=== PATIENT | male | born 2000 | race Caucasian/White ===

== ENCOUNTER 2022-03-05 12:54 | Inpatient (IN) | payer MEDICAID, OTHER ==
[~2022-03-05] VITALS: Ht 170.2 cm; Wt 79.8 kg
[2022-03-05] MEDS ORDERED: ONDANSETRON HCL 4MG/2ML INJ IV STA (14:05)
[2022-03-05] MEDS ORDERED: MIDAZOLAM HCL 2 MG/2 ML VIAL IV ONE (14:15)
[2022-03-05] MEDS ORDERED: LEVETIRACETAM 1000MG PREMIX 100 ML IV ONE (14:15)
[2022-03-05] MEDS ORDERED: SODIUM CHLORIDE 0.9% 1,000 ML IV ONE (14:15)
[2022-03-05 15:19] LABS: BASOPHILS % 0.2 % (0.0-2.0); EOSINOPHILS % 0.1 % (0.0-5.0); HEMATOCRIT. 47.7 % (42.0-52.0); LYMPHOCYTES % 8.7 % (20.0-50.0); MEAN CORPUSCULAR HEMOGLOBIN 31.3 pg (28.0-32.0); MEAN CORPUSCULAR VOLUME 93.6 fL (80.0-94.0); MEAN PLATELET VOLUME 8.6 fl (7.4-10.4); MONOCYTES % 4.1 % (2.0-8.0); NEUTROPHILS % 86.9 % (40.0-76.0); PLATELET 273 x1000/uL (130-400); RED CELL DISTRIBUTION WIDTH 14.4 % (11.6-14.6)
[2022-03-05 15:20] LABS: CHLORIDE 108 mEq/L (98-107)
[2022-03-05 15:27] LABS: ETHANOL BLOOD < 10 mg/dL
[2022-03-05] MEDS ORDERED: CHLORDIAZEPOXIDE 25MG CAPSULE PO ONE (16:15)
[2022-03-05] MEDS ORDERED: CHLORDIAZEPOXIDE 25MG CAPSULE PO NR (16:30)
[2022-03-05 22:59] VITALS: BP 129/77
[2022-03-06] MEDS ORDERED: LORAZEPAM 1MG TABLET PO PRN (00:30)
[2022-03-06] MEDS ORDERED: NALOXONE HCL 0.4MG/ML VIAL IV PRN (01:15)
[2022-03-06] MEDS: HYDROCODONE/ACETAMINOPHEN 10/325MG TABLET PO PRN ×2 (01:21→18:03)
[2022-03-06 04:00] VITALS: BP 106/63
[2022-03-06 06:43] LABS: BASOPHILS % 0.3 % (0.0-2.0); EOSINOPHILS % 0.3 % (0.0-5.0); HEMATOCRIT. 41.5 % (42.0-52.0); HEMOGLOBIN. 14.1 g/dL (14.0-18.0); LYMPHOCYTES % 21.1 % (20.0-50.0); MEAN CORPUSCULAR HEMOGLOBIN 31.6 pg (28.0-32.0); MEAN PLATELET VOLUME 8.9 fl (7.4-10.4); MONOCYTES % 6.4 % (2.0-8.0); NEUTROPHILS % 71.9 % (40.0-76.0); PLATELET 250 x1000/uL (130-400); RED BLOOD CELL COUNT 4.46 mill/uL (4.7-6.1); RED CELL DISTRIBUTION WIDTH 14.4 % (11.6-14.6)
[2022-03-06 08:00] VITALS: BP 113/62
[2022-03-06] MEDS: LEVETIRACETAM 500MG TABLET PO SCH ×2 (08:22→20:14)
[2022-03-06 09:45] LABS: CHLORIDE 107 mEq/L (98-107)
[2022-03-06 12:00] VITALS: BP 118/59
[2022-03-06 14:32] LABS: CLARITY URINE CLEAR (CLEAR); COLOR URINE YELLOW (YELLOW); KETONES URINE 2+ (NEGATIVE); LEUKOCYTE ESTERASE URINE 2+ (NEGATIVE); NITRITE URINE NEGATIVE (NEGATIVE); OCCULT BLOOD URINE NEGATIVE (NEGATIVE); PH URINE 5.5 (4.5-8.0); PROTEIN URINE NEGATIVE (NEGATIVE); SPECIFIC GRAVITY URINE 1.025 (1.005-1.030)
[2022-03-06 14:53] LABS: *AMPHETAMINES SCREEN URINE NEGATIVE (NEGATIVE); *BARBITURATES SCREEN URINE NEGATIVE (NEGATIVE); *BENZODIAZEPINES SCREEN URINE PRESUMTIVE POSITIVE (NEGATIVE); *COCAINE SCREEN URINE NEGATIVE (NEGATIVE); CANNABINOID URINE SCREEN PRESUMTIVE POSITIVE (NEGATIVE); METHADONE URINE SCREEN NEGATIVE (NEGATIVE); OPIATES URINE SCREEN PRESUMTIVE POSITIVE (NEGATIVE); PHENCYCLIDINE URINE SCREEN NEGATIVE (NEGATIVE)
[2022-03-06 16:00] VITALS: BP 123/56
[2022-03-06 20:00] VITALS: BP 136/76
[2022-03-06] MEDS ORDERED: CEFTRIAXONE 1 G PREMIX 50 ML IV SCH (21:45)
[2022-03-06] MEDS ORDERED: CEFTRIAXONE 1,000 MG in DEXTROSE 5% WATER 50 ML IV SCH (23:00)
[2022-03-07] VITALS: BP 128/72
[2022-03-07 04:00] VITALS: BP 124/77
[2022-03-07 07:49] LABS: BASOPHILS % 0.5 % (0.0-2.0); EOSINOPHILS % 0.7 % (0.0-5.0); HEMATOCRIT. 43.9 % (42.0-52.0); HEMOGLOBIN. 14.9 g/dL (14.0-18.0); LYMPHOCYTES % 20.7 % (20.0-50.0); MEAN CORPUSCULAR HEMOGLOBIN 31.7 pg (28.0-32.0); MEAN CORPUSCULAR VOLUME 93.1 fL (80.0-94.0); MEAN PLATELET VOLUME 8.4 fl (7.4-10.4); MONOCYTES % 7.2 % (2.0-8.0); NEUTROPHILS % 70.9 % (40.0-76.0); PLATELET 250 x1000/uL (130-400); RED BLOOD CELL COUNT 4.71 mill/uL (4.7-6.1); RED CELL DISTRIBUTION WIDTH 14.2 % (11.6-14.6)
[2022-03-07 08:01] LABS: CHLORIDE 104 mEq/L (98-107)
[2022-03-07] MEDS: LEVETIRACETAM 500MG TABLET PO SCH (08:56)
[2022-03-07] MEDS ORDERED: LEVO250T43 MT (14:54)
[2022-03-07] MEDS ORDERED: KEPP500 PO (14:54)
== END 2022-03-07 16:30 | disposition home or self-care (01) | DRG 53 ==
LOC: ER 12:54 → 7WST 18:33 → EDBEDREQTM 18:48 → EDBEDREQ 18:48 → ENRESERV 22:23
PROVIDERS: ADMIT Internal Medicine; ATTEND Internal Medicine
PROC: 4A00X4Z Measurement of Central Nervous Electrical Activity, External Approach (ICD-10-PCS; principal; 2022-03-07)
DX: R56.9 Unspecified convulsions (principal); F12.10 Cannabis abuse, uncomplicated; F13.239 Sedative, hypnotic or anxiolytic dependence with withdrawal, unspecified; F19.10 Other psychoactive substance abuse, uncomplicated; F41.9 Anxiety disorder, unspecified; Z20.822 Contact with and (suspected) exposure to COVID-19
CPT/HCPCS: 36415; 80048; 80053; 80076; 80305; 80320; 81003; 85025; 87426; 93005; 93970; 95816; 99291; J0696; J1953; J2250; J2405; J7030; J7060; G0480

== ENCOUNTER 2022-03-23 16:37 | Emergency (ER) | payer OTHER ==
[~2022-03-23] VITALS: Ht 177.8 cm; Wt 73.0 kg
[~2022-03-23 16:37] MED LIST: KEPP500 PO; LEVO250T43 MT
[2022-03-23] MEDS ORDERED: SODIUM CHLORIDE 0.9% 1,000 ML IV ONE (17:00)
[2022-03-23] MEDS ORDERED: LEVETIRACETAM 1000MG PREMIX 100 ML IV ONE (17:00)
[2022-03-23 17:43] LABS: BASOPHILS % 0.4 % (0.0-2.0); EOSINOPHILS % 1.1 % (0.0-5.0); HEMOGLOBIN. 14.6 g/dL (14.0-18.0); LYMPHOCYTES % 20.7 % (20.0-50.0); MEAN CORPUSCULAR HEMOGLOBIN 32.3 pg (28.0-32.0); MEAN CORPUSCULAR VOLUME 92.8 fL (80.0-94.0); MEAN PLATELET VOLUME 9.1 fl (7.4-10.4); MONOCYTES % 5.4 % (2.0-8.0); NEUTROPHILS % 72.4 % (40.0-76.0); PLATELET 221 x1000/uL (130-400); RED BLOOD CELL COUNT 4.53 mill/uL (4.7-6.1); RED CELL DISTRIBUTION WIDTH 14.1 % (11.6-14.6)
[2022-03-23] MEDS ORDERED: ONDANSETRON HCL 4MG/2ML INJ IV ONE (17:45)
[2022-03-23 18:01] LABS: CHLORIDE 106 mEq/L (98-107)
[2022-03-23 18:07] LABS: ETHANOL BLOOD < 10 mg/dL
[2022-03-23 18:08] LABS: CLARITY URINE CLEAR (CLEAR); COLOR URINE YELLOW (YELLOW); KETONES URINE TRACE (NEGATIVE); LEUKOCYTE ESTERASE URINE NEGATIVE (NEGATIVE); NITRITE URINE NEGATIVE (NEGATIVE); OCCULT BLOOD URINE NEGATIVE (NEGATIVE); PROTEIN URINE 1+ (NEGATIVE); SPECIFIC GRAVITY URINE 1.015 (1.005-1.030); UROBILINOGEN URINE 0.2 E.U./dL (0.2-1.0)
[2022-03-23 18:27] LABS: *AMPHETAMINES SCREEN URINE NEGATIVE (NEGATIVE); *BARBITURATES SCREEN URINE NEGATIVE (NEGATIVE); *BENZODIAZEPINES SCREEN URINE PRESUMTIVE POSITIVE (NEGATIVE); *COCAINE SCREEN URINE NEGATIVE (NEGATIVE); CANNABINOID URINE SCREEN PRESUMTIVE POSITIVE (NEGATIVE); METHADONE URINE SCREEN NEGATIVE (NEGATIVE); OPIATES URINE SCREEN NEGATIVE (NEGATIVE); PHENCYCLIDINE URINE SCREEN NEGATIVE (NEGATIVE)
[2022-03-24] MEDS ORDERED: HALOPERIDOL LACTATE 5MG/ML VIAL IM NR (02:45)
[2022-03-24 13:23] VITALS: BP 120/70
== END 2022-03-24 13:24 | disposition home or self-care (01) ==
LOC: ER 16:37
DX: T42.6X2A Poisoning by other antiepileptic and sedative-hypnotic drugs, intentional self-harm, initial encounter (principal); F32.A Depression, unspecified; G40.909 Epilepsy, unspecified, not intractable, without status epilepticus; Z20.822 Contact with and (suspected) exposure to COVID-19; Y92.018 Other place in single-family (private) house as the place of occurrence of the external cause
CPT/HCPCS: 36415; 80053; 80305; 80307; 80320; 80329; 81003; 82542; 85025; 96365; 96372; 96375; 99285; C9803; J1630; J1953; J2405; J7030; U0003; U0005; G0480

== ENCOUNTER 2022-07-15 06:45 | Emergency (ER) | payer MEDICAID, OTHER ==
[~2022-07-15] VITALS: Ht 172.7 cm; Wt 71.0 kg
[~2022-07-15 06:45] MED LIST changes: -LEVO250T43 MT; +LEVO250T74 MT
[2022-07-15] MEDS ORDERED: IBUPROFEN 600MG TABLET PO ONE (08:30)
[2022-07-15] MEDS ORDERED: ACETAMINOPHEN 325MG TABLET PO ONE (09:00)
[2022-07-15] MEDS ORDERED: IBUP-2028 MT (11:02)
[2022-07-15 11:16] VITALS: BP 111/64
== END 2022-07-15 11:17 | disposition home or self-care (01) ==
LOC: ER 06:45
DX: M25.572 Pain in left ankle and joints of left foot (principal); Z86.59 Personal history of other mental and behavioral disorders; V00.131A Fall from skateboard, initial encounter; Y93.89 Activity, other specified; Y92.89 Other specified places as the place of occurrence of the external cause; Y99.8 Other external cause status
CPT/HCPCS: 73610; 73620; 99284

== ENCOUNTER 2022-08-24 10:26 | Emergency (ER) | payer MEDICAID ==
[~2022-08-24] VITALS: Ht 167.6 cm; Wt 75.0 kg
[~2022-08-24 10:26] MED LIST changes: +IBUP-2028 MT
[2022-08-24 10:54] VITALS: BP 113/78
[2022-08-24] MEDS ORDERED: IBUP-2029 MT (12:05)
[2022-08-24] MEDS ORDERED: PENI500T MT (12:05)
[2022-08-24] MEDS ORDERED: KETOROLAC 30MG/ML VIAL IM ONE (12:45)
== END 2022-08-24 12:55 | disposition home or self-care (01) ==
LOC: ER 10:26
DX: R07.0 Pain in throat (principal); Z20.822 Contact with and (suspected) exposure to COVID-19; Z86.59 Personal history of other mental and behavioral disorders
CPT/HCPCS: 87070; 87077; 87426; 87430; 99283; C9803